=== PATIENT | female | born 1970 | race African-American/Black ===

== ENCOUNTER 2016-09-03 05:40 | Day surgery (SDC) | payer BC ==
[2016-08-31 13:38] VITALS: BMI 23.9
[2016-09-03] MEDS ORDERED: LIDOCAINE HCL/PF 2% SDV 5ML VIAL ONE (14:06)
[2016-09-03] MEDS ORDERED: PROPOFOL 20 ML ONE (14:07)
[2016-09-03] MEDS ORDERED: ROCURONIUM BROMIDE 50 MG/5 ML VIAL ONE (14:07)
[2016-09-03] MEDS ORDERED: MIDAZOLAM HCL 2 MG/2 ML SINGLE DOSE VIAL ONE (14:12)
[2016-09-03] MEDS ORDERED: ceFAZolin SODIUM 1 GM VIAL IVPB ONE (14:40)
[2016-09-03] MEDS ORDERED: DESFLURANE GAS 240 ML BOTTLE IH ONE (15:01)
[2016-09-03] MEDS ORDERED: BUPIVACAINE HCL/PF 0.5% (5MG/ML) 10 ML VIAL ONE (15:26)
[2016-09-03] MEDS ORDERED: BUPIVACAINE HCL/PF (5 MG/ML) 30 ML VIAL IJ ONE (15:30)
[2016-09-03] MEDS ORDERED: KETOROLAC TROMETHAMINE 30 MG/1 ML VIAL ONE (15:32)
[2016-09-03] MEDS ORDERED: GLYCOPYRROLATE 0.2 MG/1 ML VIAL ONE ×2 (15:32)
[2016-09-03] MEDS ORDERED: NEOSTIGMINE METHYLSULFATE 0.5 MG/ML - 10 ML MDV ONE (15:32)
[2016-09-03] MEDS ORDERED: DEXAMETHASONE SOD PHOSPHATE 4 MG/1 ML VIAL ONE (15:32)
[2016-09-03] MEDS ORDERED: ONDANSETRON 4 MG/2 ML VIAL IVPUSH PRN (15:52)
[2016-09-03] MEDS ORDERED: oxyCODONE HCL 5 MG TABLET PO PRN (15:52)
[2016-09-03] MEDS ORDERED: PROMETHAZINE HCL 25 MG/1 ML VIAL IVPUSH PRN (15:52)
[2016-09-03 17:17] VITALS: PULSE 62
[2016-09-03 17:20] VITALS: TEMP 97.8
--- NOTE | 2016-09-03 17:40 | HP ---
History & Physical Update - History History: No Change - Physical Physical: No Change - Assessment Assessment: No Change - Plan Plan: No Change
[2016-09-03] MEDS ORDERED: ACETAMINOPHEN 325 MG TABLET (FP) PO PRN (17:43)
[2016-09-03] MEDS ORDERED: IBUPROFEN 400 MG TABLET (FP) PO PRN (17:43)
--- NOTE | 2016-09-03 17:43 | OP ---
Operative Note - Note: Operative Date: 09/03/16 Pre-Operative Diagnosis: Voluntary Sterlization. Excessive Bleeding/ Menorrhagia. Enometrial polyp Operation: Hysteroscopic myomectomy. Dilation & Curettage. Laparoscopic Salpingectomy Findings: Hydrosalpinx of proximal segment of fallopian tube endometrial polyp Post-Operative Diagnosis: Same as Pre-op Surgeon: Elana Russell Anesthesia: General Estimated Blood Loss (mls): 40 Operative Report Dictated: Yes
[2016-09-03] MEDS ORDERED: IBUPROFEN 400 MG TABLET (FP) PO ONE (18:35)
[2016-09-03 19:22] VITALS: BP 112/62
--- NOTE | 2016-09-05 14:29 | PATH ---
Surgical Pathology Report Patient Name: RICKEY SANCHEZ [facility]. Rec. #: [id number] /Age/Gender: 1970 (Age: 45) / F Account: [id number] Location: [facility] SURGICAL Taken: 09/03/2016 Received: 09/04/2016 Reported: 09/05/2016 Physicians: Elana Russell M.D. Specimen(s) Received A: UTERINE CONTENTS B: PORTION OF RIGHT FALLOPIAN TUBE C: PORTION OF LEFT FALLOPIAN TUBE Clinical History Abnormal bleeding, pelvic pain, endometrial polyp Final Diagnosis A. CONTENTS OF UTERUS, SUCTION, DILATION AND CURETTAGE: POLYPOID FRAGMENTS OF WEAKLY PROLIFERATIVE AND DYSSYNCHRONOUS ENDOMETRIUM. B. FALLOPIAN TUBE, RIGHT, SALPINGECTOMY: BENIGN FALLOPIAN TUBE WITH FOCAL FIBROUS ADHESIONS. C. FALLOPIAN TUBE, LEFT SALPINGECTOMY: BENIGN FALLOPIAN TUBE WITH HYDROSALPINX AND PARATUBAL CYST. Electronically Signed Emeka Foss M.D. Gross Description A. Received in formalin labeled "contents of uterus" is a 3.0 x 1.8 and 0.2 cm aggregate of palma-brown soft tissue fragments. The formalin is filtered and the specimen is entirely submitted in one cassette. B. Received in formalin labeled "right fallopian tube" are 2 portions of fallopian tube measuring 1.2 and 1.7 cm in length. The shorter portion displays attached fimbria. The outer surfaces are palma-rea. Sectioning reveals a pinpoint lumen. Water Chaser sections are submitted in 2 cassettes as follows: 1-fimbria; 2-cross sections of fallopian tube. C. Received in formalin labeled "portion left fallopian tube" is a 4.5 cm in length fimbriated portion of fallopian tube. The outer surface is palma-galan with a 1.0 cm in greatest dimension paratubal cyst attached to the fimbria. Sectioning reveals a focally dilated lumen containing blood. Water Chaser sections are submitted in 2 cassettes as follows: 1-fimbria; 2-cross sections of fallopian tube. 09/04/201609/04/2016
== END 2016-09-03 19:00 | disposition home or self-care (01) ==
LOC: JASU-SURG 05:40
PROVIDERS: ATTEND Obstetrics & Gynecology
PROC: 0UB74ZZ Excision of Bilateral Fallopian Tubes, Percutaneous Endoscopic Approach (ICD-10-PCS; principal; 2016-09-03 13:45)
PROC: 0UB98ZX Excision of Uterus, Via Natural or Artificial Opening Endoscopic, Diagnostic (ICD-10-PCS; 2016-09-03 13:45)
PROC: 0UDB8ZX Extraction of Endometrium, Via Natural or Artificial Opening Endoscopic, Diagnostic (ICD-10-PCS; 2016-09-03 13:45)
DX: Z30.2 Encounter for sterilization (principal); N92.0 Excessive and frequent menstruation with regular cycle; N70.11 Chronic salpingitis; N84.0 Polyp of corpus uteri
CPT/HCPCS: 88305-TC; 94760